=== PATIENT | female | born 1995 | race African-American/Black ===

== ENCOUNTER 2017-04-27 21:43 | Inpatient (IN) ==
[2017-04-27] MEDS ORDERED: LACTATED RINGERS 1,000 ML IV SCH (22:30)
[2017-04-27 22:38] LABS: Apearance,Urine CLOUDY (Clear); Bacteria,Urine Many /HPF (Few); Bilirubin,Urine Negative (Negative); Blood, Urine Negative (Negative); Glucose,Urine (UA) Negative (Negative); Ketones,Urine 20 mg/dL (Negative); Mucus,Urine Few /LPF (Occasional); Nitrite,Urine Negative (Negative); Protein,Urine 30 MG/DL; RBC,Urine 13 /HPF (0-4); Squamous Epithelial Cell,Urine Moderate /HPF (0-10); Urine Color Amber (Yellow); Urine Specific Gravity 1.017 (1.001-1.035); WBC,Urine 57 /HPF (0-6)
[2017-04-27] MEDS ORDERED: BUTORPHANOL 1 MG/ML VIAL IV PRN (23:08)
[2017-04-27] MEDS ORDERED: ONDANSETRON 4 MG/2 ML VIAL IV PRN (23:08)
[2017-04-27] MEDS ORDERED: LABETALOL 100 MG TABLET ONE (23:27)
[2017-04-27] MEDS: LABETALOL 100 MG TABLET PO SCH (23:32)
[2017-04-28] MEDS ORDERED: AMPICILLIN INJ 2,000 MG in SODIUM CHLORIDE 0.9% 50 ML IV ONE (04:58)
[2017-04-28] MEDS ORDERED: OXYTOCIN/LR 20 UNIT/1,000 ML BAG IV SCH (05:00)
[2017-04-28] MEDS ORDERED: LACTATED RINGERS 1,000 ML IV SCH (05:00)
[2017-04-28] MEDS ORDERED: hydrOXYzine HCL 25 MG/1 ML VIAL IM PRN (06:35)
[2017-04-28] MEDS ORDERED: PROMETHAZINE 25 MG/1 ML VIAL IM ONE (06:35)
[2017-04-28] MEDS ORDERED: ONDANSETRON 4 MG/2 ML VIAL IV ONE (06:35)
[2017-04-28] MEDS ORDERED: fentaNYL 2 MCG/ROPIV 0.2% EPID 150 ML EPIDURAL SCH (06:35)
[2017-04-28] MEDS ORDERED: FAMOTIDINE 20 MG/2 ML VIAL IV ONE (06:35)
[2017-04-28] MEDS ORDERED: CITRIC ACID/SODIUM CITRATE 30 ML UDCUP PO ONE (06:35)
[2017-04-28] MEDS ORDERED: ePHEDrine 50 MG/ML AMP IV PRN (06:35)
[2017-04-28] MEDS ORDERED: diphenhydrAMINE 50 MG/1 ML VIAL IV PRN ×2 (06:35)
[2017-04-28 06:47] LABS: Basophils % 0.2 % (0.0-0.8); Eosinophils % 0.1 % (0.00-10.9); Hematocrit 31.6 VOL% (35.7-47.0); Hemoglobin 10.5 GM/DL (12.0-16.0); Immature Granulocytes % 0.3 %; Immature Granulocytes Absolute 0.03 #; Lymphocytes # 2.3 10*3/uL (1.4-4.0); Lymphocytes % 25.6 % (21.3-54.2); Mean Corpuscular HGB Conc 33.2 GM/DL (32-36); Mean Corpuscular Hemoglobin 28 PG (27-34); Mean Corpuscular Volume 84.5 FL (87-102); Mean Platelet Volume 12.5 FL (9.6-12.0); Monocytes # 0.6 10*3/uL (0.11-0.8); Monocytes % 6.6 % (1.7-12.7); Neutrophils # 6.1 10*3/uL (1.4-7.4); Neutrophils % 67.2 % (38.7-73.9); Platelet Count 159 T/CUMM (130-400); Red Blood Count 3.74 MC/CUMM (3.8-5.5); Red Cell Distribution Width 14.2 % (9.3-17.3)
[2017-04-28 07:25] LABS: Alanine Aminotransferase < 9 U/L (13-56); Albumin 2.3 G/DL (3.4-5.0); Alkaline Phosphatase 248 U/L (45-117); Aspartate Amino Transferase 20 U/L (0-37); Blood Urea Nitrogen 3 MG/DL (7-18); Calcium 8.7 MG/DL (8.5-10.1); Glucose 66 MG/DL (74-106); Osmolality,Calculated 271.5 MOS/KG (273-304); Potassium 3.6 MMOL/L (3.5-5.1); Sodium 139 MMOL/L (136-145); Total Protein 5.9 G/DL (6.4-8.3)
[2017-04-28] MEDS ORDERED: AMPICILLIN INJ 1,000 MG in SODIUM CHLORIDE 0.9% 50 ML IV SCH (09:00)
[2017-04-28] MEDS ORDERED: DIPH/TET/ACEL PERT BOOSTER VACCINE 0.5 ML VIAL IM ONE (09:37)
[2017-04-28] MEDS ORDERED: HYDROCORTISONE 2.5% RECTAL CREAM 30 GM TUBE TOP PRN (09:37)
[2017-04-28] MEDS ORDERED: RHO(D) IMMUNE GLOBULIN 300 MCG SYRINGE IM ONE (09:37)
[2017-04-28] MEDS ORDERED: BISACODYL 10 MG SUPP RECTAL PRN (09:37)
[2017-04-28] MEDS ORDERED: LANOLIN 50% CREAM 0.3 OZ TUBE TOP PRN (09:37)
[2017-04-28] MEDS ORDERED: oxyCODONE/ACETAMINOPHEN 5-325 MG TABLET PO PRN ×2 (09:37)
[2017-04-28] MEDS ORDERED: MEASLES/MUMPS/RUBELLA VACCINE 0.5 ML VIAL SUBCUT ONE (09:37)
[2017-04-28] MEDS ORDERED: ACETAMINOPHEN 325 MG TABLET PO PRN (09:37)
[2017-04-28] MEDS ORDERED: ONDANSETRON 4 MG/2 ML VIAL IV PRN (09:37)
[2017-04-28] MEDS ORDERED: OXYTOCIN/LR 20 UNIT/1,000 ML BAG IV ONE (09:37)
[2017-04-28] MEDS ORDERED: BENZOCAINE 20%/MENTHOL 0.5% SPRAY 56 GM CAN TOP PRN (09:37)
[2017-04-28] MEDS ORDERED: IBUPROFEN 800 MG TABLET PO PRN (09:37)
[2017-04-28] MEDS ORDERED: WITCH HAZEL PADS 100/JAR TOP PRN (09:37)
[2017-04-28] MEDS: LABETALOL 100 MG TABLET PO SCH ×2 (12:08→20:34)
[2017-04-28] MEDS: DOCUSATE SODIUM 100 MG CAPSULE PO SCH (20:35)
[2017-04-28] MEDS ORDERED: LABETALOL 100 MG TABLET PO SCH (23:08)
[2017-04-29 07:00] LABS: Basophils % 0.2 % (0.0-0.8); Eosinophils % 0.4 % (0.00-10.9); Hematocrit 28.5 VOL% (35.7-47.0); Hemoglobin 9.4 GM/DL (12.0-16.0); Immature Granulocytes % 0.5 %; Immature Granulocytes Absolute 0.05 #; Lymphocytes # 2.3 10*3/uL (1.4-4.0); Lymphocytes % 24.8 % (21.3-54.2); Mean Corpuscular Hemoglobin 28 PG (27-34); Mean Corpuscular Volume 83.6 FL (87-102); Mean Platelet Volume 12.5 FL (9.6-12.0); Monocytes # 0.6 10*3/uL (0.11-0.8); Monocytes % 6.6 % (1.7-12.7); Neutrophils # 6.3 10*3/uL (1.4-7.4); Neutrophils % 67.5 % (38.7-73.9); Platelet Count 142 T/CUMM (130-400); Red Blood Count 3.41 MC/CUMM (3.8-5.5); Red Cell Distribution Width 14.3 % (9.3-17.3); White Blood Count 9.3 T/CUMM (4-12)
[2017-04-29] MEDS ORDERED: INFLUENZA VIRUS VACCINE 0.5 ML SYRINGE IM ONE (07:00)
[2017-04-29] MEDS: LABETALOL 100 MG TABLET PO SCH ×2 (08:41→22:39)
[2017-04-29] MEDS: DOCUSATE SODIUM 100 MG CAPSULE PO SCH ×2 (08:41→22:39)
[2017-04-29] MEDS: MULTIVITAMIN (PRENATAL) TABLET PO SCH (08:41)
[2017-04-30 07:18] VITALS: BP 146/88
[2017-04-30] MEDS: DOCUSATE SODIUM 100 MG CAPSULE PO SCH (10:02)
[2017-04-30] MEDS: LABETALOL 100 MG TABLET PO SCH (10:02)
[2017-04-30] MEDS: MULTIVITAMIN (PRENATAL) TABLET PO SCH (10:02)
== END 2017-04-30 14:15 | disposition home or self-care (01) | DRG 560 ==
LOC: N.LDOUT 21:43 → N.LD 21:47 → N.OB 04-28 12:00
PROVIDERS: ADMIT Specialist; ATTEND Specialist